=== PATIENT | female | born 1955 | race American Indian/Alaskan Native ===

== ENCOUNTER 2016-07-05 16:01 | Emergency (ER) | payer MEDICAID ==
[2016-07-05] MEDS ORDERED: REGLAN IV ONE (17:00)
[2016-07-05] MEDS ORDERED: NACL 0.9% 1000 ML 1,000 ML IV ONE (17:00)
[2016-07-05] MEDS ORDERED: BENADRYL IV ONE (17:00)
[2016-07-05] MEDS ORDERED: MORPHINE IV ONE (17:00)
[2016-07-05 17:49] LABS: Anion Gap 20 mmol/L; Blood Urea Nitrogen 9 mg/dL (7-17); Calcium 8.7 mg/dL (8.4-10.2); Carbon Dioxide 26 mmol/L (22-30); Glucose 90 mg/dL (65-100); Potassium 3.6 mmol/L (3.6-5.0); Sodium 143 mmol/L (137-145)
--- NOTE | 2016-07-05 17:51 | Cat Scan Report ---
FINAL REPORT EXAM: CT HEAD/BRAIN WO CON HISTORY: headache TECHNIQUE: Noncontrast CT axial images of the brain. PRIORS: None. FINDINGS: No parenchymal mass, mass effect, hemorrhage, midline shift or hydrocephalus. No evidence of acute cortical infarct. No abnormal, extra-axial fluid or air collection. Osseous calvarium grossly intact. Mild mucosal thickening in the ethmoid sinuses. IMPRESSION: 1. No acute intracranial findings.
[2016-07-05 18:40] LABS: Mean Corpuscular HGB Conc 29 % (30-34); Platelet Count 489 K/mm3 (140-440); Red Blood Count 5.08 M/mm3 (3.65-5.03); White Blood Count 8.5 K/mm3 (4.5-11.0)
[2016-07-05 18:41] LABS: Hemoglobin 8.9 gm/dl (10.1-14.3)
[2016-07-05 18:42] LABS: Hematocrit 30.7 % (30.3-42.9); Mean Corpuscular Hemoglobin 17 pg (28-32); Mean Corpuscular Volume 60 fl (79-97); Red Cell Distribution Width 20.9 % (13.2-15.2)
--- NOTE | 2016-07-05 19:12 | Emergency Department Report ---
HPI - General Chief Complaint: Chest Pain Time Seen by Provider: 07/05/16 16:37 - HPI HPI: The patient is a 60-year-old female who presents for evaluation of chest pain and headache. The patient reports chest pain and headache for the past 2 days. Her chest pain and headache have both been constant, her headache has been 10/ 10 in severity, aching in quality, exacerbated with head movement, and her chest pain has been bilateral, burning in quality, 8/10 in severity. The patient denies fever, trauma to the head or chest, neck pain or stiffness, paresthesias, motor deficits, hemoptysis, unilateral leg swelling, recent immobilization, history of DVT or PE, recent cancer or surgery. ED Past Medical Hx - Past Medical History Previous Medical History?: Yes Hx Hypertension: Yes Hx Congestive Heart Failure: Yes Hx Diabetes: No Hx GERD: Yes Hx Asthma: No Hx COPD: Yes Additional medical history: irregular heart beat, acid reflux. - Surgical History Past Surgical History?: Yes Hx Breast Surgery: Yes - Social History Smoking Status: Current Every Day Smoker Substance Use Type: Alcohol - Medications Home Medications: Home Medications Medication Instructions Recorded Confirmed Last Taken Type Aspirin [Aspirin BABY CHEW TAB] 81 mg PO QDAY #30 tab.chew 11/05/13 Unknown Rx Metoprolol [Lopressor TAB] 25 mg PO BID #60 tablet 11/05/13 Unknown Rx Omeprazole [PriLOSEC] 20 mg PO QDAY #14 capsule.dr 11/05/13 Unknown Rx Ciprofloxacin HCl [Cipro] 500 mg PO Q12H #6 tab 11/25/13 Unknown Rx Acetaminophen/Codeine [Tylenol #3] 1 tab PO Q6H PRN #12 tab 07/05/16 Unknown Rx Ondansetron [Zofran TAB] 4 mg PO Q8HR PRN #15 tablet 07/05/16 Unknown Rx ED Review of Systems ROS: Stated complaint: CHEST PAIN Other details as noted in HPI Constitutional: denies: fever ENT: denies: throat or neck pain Respiratory: denies: cough, shortness of breath Cardiovascular: reports chest pain Endocrine: denies unexplained weight loss or gain Gastrointestinal: denies: abdominal pain, nausea Genitourinary: denies: dysuria Musculoskeletal: denies: leg swelling Skin: denies: rash Neurological: denies: headache Hematological/Lymphatic: denies: easy bleeding or easy bruising Psych: denies sadness or hopelessness Physical Exam - Physical Exam Vital Signs: Vital Signs 07/05/16 07/05/16 07/05/16 16:20 16:22 16:25 Temperature 98.1 F Pulse Rate 108 H 108 H 111 H Respiratory 26 H 26 H 25 H Rate Blood Pressure 145/97 145/97 Blood Pressure 145/97 [Right] O2 Sat by Pulse 100 Oximetry 07/05/16 07/05/16 07/05/16 16:27 16:29 16:30 Temperature Pulse Rate 106 H 106 H 108 H Respiratory 26 H 24 19 Rate Blood Pressure 145/97 145/97 150/105 Blood Pressure [Right] O2 Sat by Pulse 100 Oximetry 07/05/16 07/05/16 07/05/16 16:45 17:00 17:27 Temperature Pulse Rate 104 H 101 H 102 H Respiratory 18 23 19 Rate Blood Pressure 155/103 161/101 161/101 Blood Pressure [Right] O2 Sat by Pulse Oximetry 07/05/16 07/05/16 07/05/16 17:30 17:41 17:45 Temperature Pulse Rate 107 H 108 H Respiratory 19 19 16 Rate Blood Pressure 131/90 131/90 Blood Pressure [Right] O2 Sat by Pulse Oximetry 07/05/16 18:01 Temperature Pulse Rate 103 H Respiratory 14 Rate Blood Pressure 127/76 Blood Pressure [Right] O2 Sat by Pulse Oximetry Physical Exam: General: well-nourished, well-developed, no acute distress Head: Normocephalic, atraumatic Eyes: normal sclera ENT: Mucous membranes are pale and dry Neck: No neck stiffness, no cervical adenopathy Respiratory: Breath sounds equal bilaterally, no wheezing, rales, or rhonchi Cardio: S1 and S2 present, no murmurs, rubs, gallops, capillary refill is delayed Abdomen: Normoactive bowel sounds, soft abdomen, no rigidity, no guarding or rebound tenderness Chest WALL/Back: No tenderness to palpation of the chest wall, no CVA tenderness with percussion Musc: No pitting edema Skin: No rash Neuro: alert oriented x4, normal cognition, speech normal, PERRL, EOM intact, no facial drooping, no uvula or tongue deviation on protrusion, no deficit with rotation of neck or shoulder shrug, no obvious gross motor deficit or sensation deficit in the arms or legs, no Keene deficit with finger to nose testing, reflexes 2+ symmetric on DTR testing, patient and family without abnormal gait Psych: Normal affect ED Course Vital Signs 07/05/16 07/05/16 07/05/16 16:20 16:22 16:25 Temperature 98.1 F Pulse Rate 108 H 108 H 111 H Respiratory 26 H 26 H 25 H Rate Blood Pressure 145/97 145/97 Blood Pressure 145/97 [Right] O2 Sat by Pulse 100 Oximetry 07/05/16 07/05/16 07/05/16 16:27 16:29 16:30 Temperature Pulse Rate 106 H 106 H 108 H Respiratory 26 H 24 19 Rate Blood Pressure 145/97 145/97 150/105 Blood Pressure [Right] O2 Sat by Pulse 100 Oximetry 07/05/16 07/05/16 07/05/16 16:45 17:00 17:27 Temperature Pulse Rate 104 H 101 H 102 H Respiratory 18 23 19 Rate Blood Pressure 155/103 161/101 161/101 Blood Pressure [Right] O2 Sat by Pulse Oximetry 07/05/16 07/05/16 07/05/16 17:30 17:41 17:45 Temperature Pulse Rate 107 H 108 H Respiratory 19 19 16 Rate Blood Pressure 131/90 131/90 Blood Pressure [Right] O2 Sat by Pulse Oximetry 07/05/16 18:01 Temperature Pulse Rate 103 H Respiratory 14 Rate Blood Pressure 127/76 Blood Pressure [Right] O2 Sat by Pulse Oximetry ED Medical Decision Making - Lab Data Result diagrams: 07/05/16 18:28 07/05/16 17:11 - Medical Decision Making The patient was seen and examined by myself. The patient is placed on a rn cardiac and continuous pulse ox. On initial evaluation, the patient was found to be in no distress. EKG was negative for findings suggestive of acute cardiac infarct. Labs and imaging are obtained. The patient is given 1 L normal saline fluid bolus for treatment of her dehydration, IV Reglan, Benadryl , and morphine for her pain. Chest x-ray is negative for pneumothorax, focal consolidation, pulmonary vascular congestion, pleural effusion, or other obvious acute cardiopulmonary disease process. Lab results were non-concerning including levels of troponin, WBC, hemoglobin, hematocrit, electrolytes, renal function. CT scan the head is negative for acute intracranial disease process. The patient was reevaluated and reported that their symptoms were markedly improved. As the patient has a KENTON risk score less than 2, and a well's score less than 2, the patient is at low risk of ACS or pulmonary emboli etiology of their symptoms. The patient is stable for discharge with outpatient follow-up. The patient is given follow-up and return instructions. The patient expressed understanding and agreed with the plan. The patient is discharged in stable condition. Critical care attestation.: If time is entered above; I have spent that time in minutes in the direct care of this critically ill patient, excluding procedure time. ED Disposition Clinical Impression: Acute chest pain, Dehydration Acute nonintractable headache Qualifiers: Headache type: unspecified Qualified Code(s): R51 - Headache Disposition: DISCHARGED TO HOME OR SELFCARE Is pt being admited?: No Does the pt Need Aspirin: No Condition: Stable Instructions: Chest Pain (ED), Acute Headache (ED) Prescriptions: Acetaminophen/Codeine [Tylenol #3] 1 tab PO Q6H PRN #12 tab PRN Reason: Pain Ondansetron [Zofran TAB] 4 mg PO Q8HR PRN #15 tablet PRN Reason: Nausea Referrals: PRIMARY CARE, [Primary Care Provider] - 3-5 Days Time of Disposition: 19:04
[2016-07-05 19:24] VITALS: BP 115/91
--- NOTE | 2016-07-06 07:45 | XRay Report ---
AP CHEST: HISTORY: chest pain There is moderate cardiomegaly. The lungs are hyperinflated but clear. No consolidation, large pleural effusion or pneumothorax. No overwhelming change since 11/23/13. IMPRESSION: Cardiomegaly. Hyperinflated lungs.
== END 2016-07-05 20:24 | disposition home or self-care (01) ==
LOC: ED 16:01
DX: E86.0 Dehydration (principal); R07.9 Chest pain, unspecified; R51 Headache; I10 Essential (primary) hypertension; I50.9 Heart failure, unspecified; K21.9 Gastro-esophageal reflux disease without esophagitis; J44.9 Chronic obstructive pulmonary disease, unspecified; F17.200 Nicotine dependence, unspecified, uncomplicated; Z79.82 Long term (current) use of aspirin
CPT/HCPCS: 36415; 70450; 71010; 80048; 84484; 85025; 96361; 96374; 96375; 99285; J1200; J2270; J2765; J7030

== ENCOUNTER 2016-10-07 16:42 | Emergency (ER) | payer MEDICAID ==
[2016-10-07 17:07] VITALS: BP 135/93
--- NOTE | 2016-10-07 19:45 | Emergency Department Report ---
ED Lower Extremity HPI - General Chief Complaint: Extremity Injury, Upper Stated Complaint: FALL/LEFT SHOULDER AND HIP X 2WKS Time Seen by Provider: 10/07/16 19:43 Source: patient, family Mode of arrival: Ambulatory Limitations: No Limitations - History of Present Illness Initial Comments: Patient here reports that she fell coming out of the bathroom onto hardwood floor today. She states that she is having pain 9 out of 10 to left hip and left shoulder. Denies any numbness or tingling to extremities. Patient has a history of arthritis. Denies any back pain or neck pain. Denies any head injury or loss of consciousness. Denies headache or blurred vision. Patient has a history of congestive heart failure and COPD, GERD, hypertension and irregular heartbeat. She took [id number] medication but she said it didn' t help worse with movement better with rest. Complaint: hip injury, other (shoulder) -: This evening Injury: Hip: Left (left hip and left shoulder injury) Type of Injury: other (fall) Place: home Severity: severe Severity scale (0 -10): 9 Improves With: immobilization, rest Worsens With: weight bearing, movement Context: fall Associated Symptoms: able to partially bear weight. denies: snap/pop sensation , swelling, numbness, tingling, ambulatory Treatments Prior to Arrival: NSAIDS - Related Data Previous Rx's Medication Instructions Recorded Last Taken Type Aspirin [Aspirin BABY CHEW TAB] 81 mg PO QDAY #30 tab.chew 11/05/13 Unknown Rx Metoprolol [Lopressor TAB] 25 mg PO BID #60 tablet 11/05/13 Unknown Rx Omeprazole [PriLOSEC] 20 mg PO QDAY #14 capsule. 11/05/13 Unknown Rx Ciprofloxacin HCl [Cipro] 500 mg PO Q12H #6 tab 11/25/13 Unknown Rx Acetaminophen/Codeine [Tylenol #3] 1 tab PO Q6H PRN #12 tab 07/05/16 Unknown Rx Ondansetron [Zofran TAB] 4 mg PO Q8HR PRN #15 tablet 07/05/16 Unknown Rx traMADol [Ultram] 50 mg PO Q6HR PRN #20 tablet 10/07/16 Unknown Rx Allergies Allergy/AdvReac Type Severity Reaction Status Date / Time No Known Allergies Allergy Verified 10/07/16 17:04 ED Review of Systems ROS: Stated complaint: FALL/LEFT SHOULDER AND HIP X 2WKS Other details as noted in HPI Comment: All other systems reviewed and negative Constitutional: denies: chills, fever Respiratory: no symptoms reported Cardiovascular: denies: chest pain, palpitations, edema, syncope Gastrointestinal: denies: abdominal pain, nausea, vomiting, diarrhea Musculoskeletal: arthralgia. denies: back pain, joint swelling, myalgia Skin: denies: rash, pruritus Neurological: abnormal gait (left lower extremity due to fall). denies: headache, weakness, numbness, paresthesias, confusion, vertigo ED Past Medical Hx - Past Medical History Previous Medical History?: Yes Hx Hypertension: Yes Hx Congestive Heart Failure: Yes Hx Diabetes: No Hx GERD: Yes Hx Asthma: No Hx COPD: Yes Additional medical history: irregular heart beat, acid reflux. - Surgical History Past Surgical History?: Yes Hx Breast Surgery: Yes - Family History Family history: hypertension - Social History Smoking Status: Current Every Day Smoker Substance Use Type: None - Medications Home Medications: Home Medications Medication Instructions Recorded Confirmed Last Taken Type Aspirin [Aspirin BABY CHEW TAB] 81 mg PO QDAY #30 tab.chew 11/05/13 Unknown Rx Metoprolol [Lopressor TAB] 25 mg PO BID #60 tablet 11/05/13 Unknown Rx Omeprazole [PriLOSEC] 20 mg PO QDAY #14 capsule. 11/05/13 Unknown Rx Ciprofloxacin HCl [Cipro] 500 mg PO Q12H #6 tab 11/25/13 Unknown Rx Acetaminophen/Codeine [Tylenol #3] 1 tab PO Q6H PRN #12 tab 07/05/16 Unknown Rx Ondansetron [Zofran TAB] 4 mg PO Q8HR PRN #15 tablet 07/05/16 Unknown Rx traMADol [Ultram] 50 mg PO Q6HR PRN #20 tablet 10/07/16 Unknown Rx ED Physical Exam - General Limitations: No Limitations General appearance: alert, in no apparent distress - Head Head exam: Present: atraumatic, normocephalic, normal inspection - Eye Eye exam: Present: normal appearance, PERRL, EOMI. Absent: periorbital swelling , periorbital tenderness - ENT ENT exam: Present: normal exam, normal orophraynx, mucous membranes moist - Neck Neck exam: Present: normal inspection, full ROM. Absent: tenderness, meningismus, lymphadenopathy - Respiratory Respiratory exam: Present: normal lung sounds bilaterally. Absent: respiratory distress, chest wall tenderness - Cardiovascular Cardiovascular Exam: Present: normal rhythm, tachycardia, normal heart sounds - GI/Abdominal GI/Abdominal exam: Present: soft, normal bowel sounds. Absent: distended, tenderness, guarding, rebound, rigid - Extremities Exam Extremities exam: Present: normal inspection, tenderness, normal capillary refill. Absent: full ROM, pedal edema, joint swelling, calf tenderness - Expanded Upper Extremity Exam Left General: Present: normal inspection. Absent: laceration, abrasion, nail injury (#), foreign body, amputation, avulsion Shoulder Exam: Present: normal inspection, tenderness over AC joint. Absent: full ROM (left shoulder with limited range of motion. Patient able to move left shoulder she said it's painful to place her arm overhead. No deformity crepitus noted.), tenderness (TTP lt GHJ andAC joint), swelling, abrasion, laceration, ecchymosis, deformity, crepidus, dislocation, erythema Upper Arm exam: Present: normal inspection, full ROM. Absent: tenderness, swelling, abrasion, laceration, ecchymosis, deformity, crepidus, dislocation, erythema Elbow exam: Present: normal inspection, full ROM. Absent: tenderness, swelling , abrasion, laceration, ecchymosis, deformity, crepidus, dislocation, erythema, effusion, pain w/ pronation/supination, tenderness over radial head Forearm Wrist exam: Present: normal inspection, full ROM. Absent: tenderness, swelling, abrasion, laceration, ecchymosis, deformity, crepidus, dislocation, erythema, tenderness over anatomical snuff box, pain with axial thumb loading Hand Wrist exam: Present: normal inspection, full ROM. Absent: tenderness, swelling, abrasion, laceration, ecchymosis, deformity, crepidus, dislocation, erythema, amputation, nail avulsion, subungual hematoma Neuro motor exam: Present: wrist extension intact, thumb opposition intact, thumb IP flexion intact, thumb adduction intact Neurosensory exam: Present: 2-point discrimination, radial nerve intact, ulnar nerve intact, median nerve intact Vascular: Present: normal capillary refill, radial pulse, brachial pulse, ulnar pulse. Absent: vascular compromise, Pallo, pulse deficit radial art, pulse deficit ulnar art, pulse deficit brachial art - Expanded Lower Extremity Exam Left Hip exam: Present: normal inspection, tenderness (tenderness the left hip.), pelvic stability. Absent: full ROM (Limited range of motion to left hip due to pain.), swelling, abrasion, laceration, ecchymosis, deformity, crepidus, dislocation, erythema, external rotation, internal rotation, shortening Upper Leg exam: Present: normal inspection, full ROM. Absent: tenderness, swelling, abrasion, laceration, ecchymosis, deformity, crepidus, dislocation, erythema Knee exam: Present: normal inspection, full ROM, full knee extension. Absent: tenderness, swelling, abrasion, laceration, ecchymosis, deformity, crepidus, dislocation, erythema, effusion, pain w/ pronation/supination Lower Leg exam: Present: normal inspection, full ROM. Absent: tenderness, swelling, abrasion, laceration, ecchymosis, deformity, crepidus, dislocation, erythema, palpable cord, Freeman's sign Ankle exam: Present: normal inspection, full ROM. Absent: tenderness, abrasion , laceration, ecchymosis, deformity, crepidus, dislocation, erythema Foot/Toe exam: Present: normal inspection, full ROM. Absent: tenderness, swelling, abrasion, laceration, ecchymosis, deformity, crepidus, dislocation, erythema, amputation, puncture wound, foreign body, calcaneal tenderness, tenderness at base of 5th metatarsal, nail avulsion Neuro vascular tendon exam: Present: no vascular compromise. Absent: pulse deficit, abnormal cap refill, motor deficit, sensory deficit, tendon deficit, extremity cold to touch, pallor, abnormal 2-point discrimination, decreased fine /light touch, foot drop, peroneal nerve deficit, significant pain with passive ROM of distal joint Gait: Positive: observed and limited by pain - Back Exam Back exam: Present: normal inspection, full ROM. Absent: tenderness, CVA tenderness (R), CVA tenderness (L), muscle spasm, paraspinal tenderness, vertebral tenderness, rash noted - Neurological Exam Neurological exam: Present: alert, oriented X3, normal gait, reflexes normal. Absent: motor sensory deficit - Psychiatric Psychiatric exam: Present: normal affect, normal mood - Skin Skin exam: Present: warm, dry, intact, normal color. Absent: rash ED Course Vital Signs 10/07/16 10/07/16 10/07/16 17:04 20:09 20:10 Temperature 98.8 F Pulse Rate 114 H 98 H Respiratory 18 20 Rate Blood Pressure 135/93 O2 Sat by Pulse 100 Oximetry - Reevaluation(s) Reevaluation #1: 10/07/16 20:18 Patient received Percocet 5/325 2 tablets in emergency room and awaiting x-ray report Reevaluation #2: 10/07/16 20:37 currently ambulatory without any difficulties. ED Lower Extremity MDM - Radiology Data Radiology results: image reviewed interpreted by me: X-ray of left hip and left shoulder shows arthritis without any acute fracture or dislocation. She was reviewed by myself and Dr. Crain - Medical Decision Making MDM: Assess/Plan ED course: An here with family and she reports that she fell accidentally while coming out of the bathroom and hit hardwood floor. She did not have any head injury or neck injury. Neurologically intact and she has no vertebral or C- spine. Tenderness complaining of pain in the left shoulder and her left hip patient given Percocet 5/325 2 tablets emergency room to manage pain.. Patient has chronic arthritis. Diagnostics/labs: X-ray of left shoulder and x-ray of left hip negative for fracture or dislocation. Degenerative disease. Diagnosis: Arthralgia multiple sites. Left hip injury, shoulder injury. Accidental fall ground level Medication: Patient given Percocet 5/325 mg 2 tablets in the emergency room to manage pain. Was relieved. Patient also given prescription for Ultram Patient instructed to follow-up with orthopedic doctor in 2 days for follow-up fall with pain to hip and shoulder joint. She voices understanding of discharge instruction and diagnosis. Rice therapy explained. Critical care attestation.: If time is entered above; I have spent that time in minutes in the direct care of this critically ill patient, excluding procedure time. ED Disposition Clinical Impression: Arthralgia of multiple joints Accidental fall Qualifiers: Encounter type: initial encounter Qualified Code(s): W19.XXXA - Unspecified fall, initial encounter Injury of left shoulder Qualifiers: Encounter type: initial encounter Qualified Code(s): S49.92XA - Unspecified injury of left shoulder and upper arm, initial encounter Injury of left hip Qualifiers: Encounter type: initial encounter Qualified Code(s): S79.912A - Unspecified injury of left hip, initial encounter Disposition: - TO HOME OR SELFCARE Is pt being admited?: No Does the pt Need Aspirin: No Condition: Stable Instructions: Arthralgia (ED), Fall Prevention for Older Adults (ED), RICE Therapy (ED) Additional Instructions: Follow-up with orthopedic doctor as instructed. Take Ultram as instructed Follow rice therapy Prescriptions: traMADol [Ultram] 50 mg PO Q6HR PRN #20 tablet PRN Reason: Pain Referrals: MIKEY SANTACRUZ MD [Staff Physician] - 10/09/16 Forms: Work/School Release Form(ED)
[2016-10-07] MEDS ORDERED: PERCOCET 5/325 PO ONE (20:04)
--- NOTE | 2016-10-07 20:53 | XRay Report ---
FINAL REPORT PROCEDURE: Left hip. TECHNIQUE: AP pelvis, frogleg lateral view of the left hip. HISTORY: Injury to left hip from fall COMPARISON: No prior studies are available for comparison. FINDINGS: The pelvis appears intact without fracture. Both hip joints appear satisfactory. There is mild osteoarthritis involving the right hip joint. There is no evidence of a hip fracture. The soft tissues are unremarkable. IMPRESSION: Mild osteoarthritis involving the right hip joint. No evidence of a left hip fracture.
--- NOTE | 2016-10-07 20:54 | XRay Report ---
FINAL REPORT PROCEDURE: Left shoulder. TECHNIQUE: Three views. HISTORY: Injury to left shoulder from fall COMPARISON: No prior studies are available for comparison. FINDINGS: The bones appear intact without fracture or dislocation. The joint spaces appear normal. The soft tissues are unremarkable. IMPRESSION: No significant abnormality.
== END 2016-10-07 20:55 | disposition home or self-care (01) ==
LOC: ED 16:42
DX: S49.92XA Unspecified injury of left shoulder and upper arm, initial encounter (principal); S79.912A Unspecified injury of left hip, initial encounter; I10 Essential (primary) hypertension; I50.9 Heart failure, unspecified; K21.9 Gastro-esophageal reflux disease without esophagitis; Z79.82 Long term (current) use of aspirin; W01.0XXA Fall on same level from slipping, tripping and stumbling without subsequent striking against object, initial encounter; Y93.89 Activity, other specified; Y99.8 Other external cause status; Y92.89 Other specified places as the place of occurrence of the external cause
CPT/HCPCS: 99283